=== PATIENT | female | born 1965 | race Caucasian/White ===

== ENCOUNTER 2016-10-09 16:44 | Emergency (ER) | payer OTHER ==
[2015-11-26 08:43] VITALS: BMI 34.1
[~2016-10-09 16:44] MED LIST: ASPIRIN EC81 M1 PO; ASPIRIN EC81 MG; ATIVAN0.5 MG PO; BAYER CHEWABLE81 MG PO; COZAAR25 MG PO; CRESTOR10 MG PO; CRESTOR20 MG PO; ESTRACE 0.5 MG0.5 MG PO; ESTRACE1 MG PO; GEMFIBROZIL600 MG PO; IMDUR30 MG PO; LIPITOR20 MG PO; MULTI-DAY VITAM1 TAB PO; NICODERM C1 PATCH .2 TRANSDERM; NITROSTAT0.4 MG SL; OMEGA-3100 MG PO; PLAVIX75 MG PO; PROZAC10 MG PO; RYBIX ODT50 MG; STRATTERA40 MG PO; SYNTHROID25 MCG PO; ULTRAM50 MG PO; ZIAC 10-6.25 MG1 TAB PO; ZIAC 10/6.25 MG1 TAB
== END 2016-10-09 18:58 | disposition home or self-care (01) ==
LOC: D.ER 16:44
DX: S16.1XXA Strain of muscle, fascia and tendon at neck level, initial encounter (principal); V43.52XA Car driver injured in collision with other type car in traffic accident, initial encounter; Y93.89 Activity, other specified; Y92.410 Unspecified street and highway as the place of occurrence of the external cause; F41.9 Anxiety disorder, unspecified; I10 Essential (primary) hypertension; I50.9 Heart failure, unspecified; F17.200 Nicotine dependence, unspecified, uncomplicated; E05.90 Thyrotoxicosis, unspecified without thyrotoxic crisis or storm

== ENCOUNTER 2017-03-02 18:41 | Emergency (ER) | payer BC ==
[2015-11-26 08:43] VITALS: BMI 34.1
[2017-03-02 19:16] LABS: BASOPHILS 0.4 % (0-2); EOSINOPHILS 1.6 % (0-7); HEMATOCRIT 42.2 % (36.0-48.0); HEMOGLOBIN 14.4 g/dL (12-16); IMMATURE GRANULOCYTES 0.5 % (0-5); LYMPHOCYTES 16.1 % (15-50); MCH 31.9 pg (26.0-34.0); MCHC 34.1 g/dL (31.0-37.0); MCV 93.4 fL (80.0-100.0); MEAN PLATELET VOLUME 11.3 fL (7.4-10.4); MONOCYTES 5.4 % (2-11); PLATELET COUNT 257 10x3/uL (130-400); RBC 4.52 10x6/uL (4.00-5.40); RDW 13.4 % (11.5-14.5); WBC 12.9 10x3/uL (4.8-10.8)
[2017-03-02 19:30] LABS: ALBUMIN 4.1 g/dL (3.4-5.0); ANION GAP 17.6 mmol/L (8-16); BILIRUBIN - TOTAL 0.26 mg/dL (0.2-1.3); CARBON DIOXIDE 24.9 mmol/L (21.0-32.0); POTASSIUM - SERUM 3.5 mmol/L (3.5-5.1); PROTEIN - SERUM 7.2 g/dL (6.4-8.2)
== END 2017-03-02 23:00 | disposition home or self-care (01) ==
LOC: D.ER 18:41
PROVIDERS: Emergency Medicine
DX: S80.12XA Contusion of left lower leg, initial encounter (principal); S90.32XA Contusion of left foot, initial encounter; S90.31XA Contusion of right foot, initial encounter; S40.012A Contusion of left shoulder, initial encounter; V43.52XA Car driver injured in collision with other type car in traffic accident, initial encounter; Y93.89 Activity, other specified; Y92.410 Unspecified street and highway as the place of occurrence of the external cause; S81.812A Laceration without foreign body, left lower leg, initial encounter; S16.1XXA Strain of muscle, fascia and tendon at neck level, initial encounter; F17.200 Nicotine dependence, unspecified, uncomplicated; I10 Essential (primary) hypertension

== ENCOUNTER 2017-03-12 12:03 | Emergency (ER) | payer OTHER ==
[2015-11-26 08:43] VITALS: BMI 34.1
[2017-03-12 15:29] LABS: BASOPHILS 0.3 % (0-2); HEMATOCRIT 36.4 % (36.0-48.0); HEMOGLOBIN 11.8 g/dL (12-16); IMMATURE GRANULOCYTES 0.4 % (0-5); LYMPHOCYTES 21.3 % (15-50); MCH 31.5 pg (26.0-34.0); MCHC 32.4 g/dL (31.0-37.0); MCV 97.1 fL (80.0-100.0); MEAN PLATELET VOLUME 10.3 fL (7.4-10.4); MONOCYTES 9.1 % (2-11); NEUTROPHILS 66.9 % (40-80); PLATELET COUNT 277 10x3/uL (130-400); RBC 3.75 10x6/uL (4.00-5.40); RDW 14.1 % (11.5-14.5); WBC 9.4 10x3/uL (4.8-10.8)
[2017-03-12 15:43] LABS: INR 1.03 (0.85-1.17); PROTIME 13.3 SECONDS (11.6-15.0)
[2017-03-12 15:48] LABS: ALBUMIN 3.6 g/dL (3.4-5.0); ALKALINE PHOSPHATASE 129 U/L (46-116); ALT (SGPT) 56 U/L (10-68); BILIRUBIN - TOTAL 0.51 mg/dL (0.2-1.3); CALC OSMOLALITY 280 mosm/kg (275-300); CALCIUM 8.9 mg/dL (8.5-10.1); CHLORIDE - SERUM 102 mmol/L (98-107); CREATININE - SERUM 0.8 mg/dL (0.6-1.3); GLUCOSE 91 mg/dL (74-106); POTASSIUM - SERUM 3.7 mmol/L (3.5-5.1); PROTEIN - SERUM 6.9 g/dL (6.4-8.2); SODIUM 141 mmol/L (136-145); UREA NITROGEN 12 mg/dL (7-18); eGFR NON AFRICAN AMERICAN 79 mL/min (90-120)
== END 2017-03-12 16:57 | disposition home or self-care (01) ==
LOC: D.ER 12:03
PROVIDERS: Nurse Practitioner Family
DX: M25.562 Pain in left knee (principal); R07.9 Chest pain, unspecified; M79.672 Pain in left foot; S81.812D Laceration without foreign body, left lower leg, subsequent encounter; X58.XXXD Exposure to other specified factors, subsequent encounter; Y92.89 Other specified places as the place of occurrence of the external cause; I50.9 Heart failure, unspecified; I10 Essential (primary) hypertension

== ENCOUNTER → 2017-05-18 11:20 | Outpatient (CLI) | payer OTHER ==
[2015-11-26 08:43] VITALS: BMI 34.1
== END | disposition home or self-care (01) ==
LOC: D.CT 11:20
DX: R10.2 Pelvic and perineal pain (principal)

== ENCOUNTER 2017-09-14 08:00 | Outpatient (CLI) | payer OTHER ==
[~2017-09-14] VITALS: Ht 157.5 cm; Wt 86.4 kg
--- NOTE | ~2017-09-14 | OP ---
PATIENT NAME: SCOTT VASQUEZ MEDICAL RECORD: [id number] :61 LOCATION:D.CAT ADMISSION DATE: SURGEON: JAMES ESPINOSA MD DATE OF OPERATION: 09/14/2017 PROCEDURES: 1. Left heart catheterization. 2. Selective coronary angiography. 3. Left ventriculogram. INDICATION: Angina, coronary artery disease, previous PTCA and stent. PROCEDURE IN DETAIL: After informed consent was obtained and after a detailed description of the risks, benefits as well as alternative therapies, the patient elected to proceed with angiogram and heart catheterization. The right femoral area was prepped and draped in normal sterile fashion. Right femoral artery was cannulated via modified Seldinger technique with placement of 6-Icelandic sheath. All catheters exchanged through this sheath. FINDINGS: The left ventriculogram was performed in standard 30-degree STONE view, reveals good cardiac wall motion throughout all segments. Overall ejection fraction estimated at 55% to 60%. SELECTIVE CORONARY ANGIOGRAPHY: 1. Left main showed no significant angiographic disease. 2. Left anterior descending has previously placed stents. These are widely patent with no significant restenosis. No disease elsewise throughout the LAD or its branches. 3. The left circumflex has previously placed stents. These are widely patent with no significant restenosis. No disease elsewise throughout the circumflex branches. 4. The right coronary has previously placed stents, which are widely patent with no significant restenosis. No disease elsewise throughout the RCA or its branches. OVERALL IMPRESSION: Wide patency of all the previously placed stents. No disease elsewise. Preserved LV function. Continue medical management of the coronary artery disease and cardiac risk factors. TRANSINT:[id number] Voice Confirmation ID: [id number] DOCUMENT ID: [id number] JAMES ESPINOSA MD at 1403 CC: [id number] DICTATION DATE: 09/14/17 1334 OBSTETRICS GYN: 09/14/17 1357 DEP CLI 09/14/[address] [address]
--- NOTE | ~2017-09-14 | HEMODYNAMI ---
PATIENT:SCOTT VASQUEZ MEDICAL RECORD: [id number] : 61 LOCATION:[facility] ADMISSION DATE: 09/14/17 Generatedon:09/14/201713:30 Patient name: SCOTT VASQUEZ Patient #: [id number] : 1965 Date of study: 09/14/2017 Page: Of Hemodynamic Procedure Report Patient Data Patient Demographics Procedure consent was obtained First Name: SCOTT Gender: Female Last Name: CHRISTINA : 1965 [facility] Initial: A Age: 52 year(s) Patient #: [id number] Race: SSN: [id number] Additional ID: [id number] Contact details Address: [address] [place] [address] State: [place] City: [place] Zip code: [address] Past Medical History History of disease Date Diagnosis Comments CAD Allergies Allergen Reaction Date Comments Reported Iodine 06/15/2015 DONNA inhibitors 06/15/2015 Other allergy 06/15/2015 meperidine, doxycycline Admission Admission Data Admission Date: 09/14/2017 Admission Time: 8:00 Procedure Procedure Types Cath Procedure Diagnostic Procedure [facility] w/Coronaries Sedation Charges Moderate Sedation up to 15 minutes Procedure Description Procedure Date Procedure Date: 09/14/2017 Procedure Start Time: 13:22 Procedure End Time: 13:29 Procedure Staff Name Function Larry Blackwell MD Performing Physician Elba Montoya RT Monitor Pallavi Latham RT Scrub Tunde Rose RN Nurse Procedure Data Cath Procedure Fluoroscopy Diagnostic fluoroscopy Total fluoroscopy Time: 1.1 time: 1.1 min min Diagnostic fluoroscopy Total fluoroscopy dose: 518 dose: 518 mGy mGy Contrast Material Contrast Material Type Amount (ml) Isovue 300 67 Entry Location Entry Primary Successful Side Size Upsize Upsize Entry Closure Succes sful Closure Location (Fr) 1 (Fr) 2 (Fr) Remarks Device Remarks Femoral Right 5 Fr Exoseal artery Estimated blood loss: 5 ml Diagnostic catheters Device Type Used For End Catheter Placement MULTIPACK Pigtail 5 Fr LV Angiography catheter MULTIPACK JL 4.0 5Fr Left Coronary catheter Angiography MULTIPACK 3DRC 5Fr Right Coronary catheter Angiography Procedure Complications No complications Procedure Medications Medication Administration Route Dosage Oxygen etCO2 Nasal cannula 2 l/min Heparin Flush Bag added to field 2 bags (1000units/500ml NS) 0.9% NaCl I.V. 100 ml/hr Fentanyl I.V. 50 mcg Versed I.V. 1 mg Fentanyl I.V. 50 mcg Versed I.V. 1 mg Fentanyl I.V. 50 mcg Versed I.V. 1 mg Fentanyl I.V. 50 mcg Versed I.V. 1 mg Fentanyl I.V. 50 mcg Hemodynamics Rest Heart Rate: 77 (bpm) Pressure Samples Time Site Value (mmHg) Purpose Heart Use Rate(bpm) 13:24 LV 136/8,33 Snapshot 84 Snapshots Pre Cath Intra NCS Post Cath Vital Signs Time Heart Resp SPO2 etCO2 NIBP (mmHg) Rhythm Pain Sedation Rate (ipm) (%) (mmHg) Status Level (bpm) 13:00:31 86 17 21.6 165/74(123) NSR 0 (11) 10(A) , No pain 13:05:06 81 16 94 30.5 159/67(121) NSR 0 (11) 10(A) , No pain 13:09:42 76 16 95 35 139/59(93) NSR 0 (11) 10(A) , No pain 13:14:10 76 16 93 23.1 136/59(94) NSR 0 (11) 10(A) , No pain 13:18:41 70 16 93 32.1 131/57(92) NSR 0 (11) 9(A) , No pain 13:23:13 70 17 95 34.3 117/54(83) NSR 0 (11) 9(A) , No pain 13:28:23 78 17 95 36.5 119/72(107) NSR 0 (11) 9(A) , No pain Medications Time Medication Route Dose Verified Delivered Reason Notes Effe ctiveness by by 13:02:22 Oxygen etCO2 2 Larry Griffiths Per Nasal l/min Rosalva Rose RN physician cannula 13:02:36 Heparin Flush added 2 Larry Griffiths used for Bag to bags Rosalva Rose cylinder grinder (1000units/500ml field NS) 13:02:47 0.9% NaCl I.V. 100 Larry Tunde Per ml/hr Rosalva Rose RN physician 13:05:44 Fentanyl I.V. 50 Larry Tunde for ashley Rose RN sedation 13:05:51 Versed I.V. 1 mg Larry Tunde for Rosalva Rose RN sedation 13:08:55 Fentanyl I.V. 50 Larry Tunde for ashley Rose RN sedation 13:09:02 Versed I.V. 1 mg Larry Tunde for Rosalva Rose RN sedation 13:12:08 Fentanyl I.V. 50 Larry Tunde for ashley Rose RN sedation 13:12:12 Versed I.V. 1 mg Larry Tunde for Rosalva Rose RN sedation 13:16:15 Fentanyl I.V. 50 Larry Tunde for ashley Rose RN sedation 13:16:18 Versed I.V. 1 mg Larry Tunde for Rosalva Rose RN sedation 13:24:44 Fentanyl I.V. 50 Larry Tunde for ashley Rose RN sedation Procedure Log Time Note 12:34:56 Elba Montoya RT(R) sent for patient. Start room use. 12:44:06 Informed consent obtained and on chart 12:44:30 Diagnostic Cath Status : Elective 12:44:57 Time tracking: Regular hours (M-F 7:00 - 5:00) 12:45:02 Plan of Care:Hemodynamics will remain stable., Cardiac rhythm will remain stable., Comfort level will be maintained., Respiratory function will remain adequate., Patient/ family verbilizes understanding of procedure., Procedure tolerated without complication., Recovers from procedure without complications.. 12:49:18 Patient received from Pre/Post Procedure Room to CCL 2 Alert and oriented. Tansferred to table in Supine position. 12:49:19 Warm blankets applied, and filiberto hugger turned on for patient comfort. 12:49:20 Correct patient and procedure confirmed by team. 12:49:20 ECG and BP/O2 sat monitors applied to patient. 12:59:06 Vital chart was started 12:59:07 Baseline sample Acquired. 12:59:10 Rhythm: sinus rhythm 12:59:12 Full Disclosure recording started 12:59:16 H&P Date Dictated: 09/14/2017 Within 30 days and on chart., H&P Addendum completed by physician on day of procedure. (MUST COMPLETE FOR ALL OUTPATIENTS). 12:59:18 Pre-procedure instructions explained to patient. 12:59:18 Pre-op teaching completed and patient verbalized understanding. 12:59:20 Family in waiting room. 12:59:21 Patient NPO since Midnight. 12:59:25 Is the patient allergic to Iodine/contrast media? No. 12:59:26 Was the patient premedicated? No 13:00:15 Is patient on blood thinner?No 13:00:16 Patient diabetic? No. 13:00:20 Previous problem with sedation/anesthesia? No ? 13:02:22 Oxygen 2 l/min etCO2 Nasal cannula was administered by Tunde Rose RN; Per physician; 13:02:36 Heparin Flush Bag (1000units/500ml NS) 2 bags added to field was administered by Tunde oRse RN; used for procedure; 13:02:47 0.9% NaCl 100 ml/hr I.V. was administered by Tunde Rose RN; Per physician; 13:03:17 Snore? Yes 13:03:18 Sleep apnea? No 13:03:19 Deviated septum? No 13:03:20 Opens mouth fully? Yes 13:03:20 Sticks out tongue? Yes 13:03:25 Airway obstruction? Yes asthma 13:03:27 Dentures? No ? 13:03:30 Pre procedure: right dorsailis pedis pulse 2+ Normal; easily identifiable; not easily obliterated 13:03:33 Pre procedure: left dorsailis pedis pulse 2+ Normal; easily identifiable; not easily obliterated 13:03:36 Patient pain scale 0/10 ?. 13:03:41 IV patent on arrival in left forearm with 0.9% NaCl at [facility]. 13:03:44 Lab results completed and on chart. 13:03:48 Right groin area was prepped with chlora-prep and draped in sterile fashion 13:03:49 Alarms reviewed by R. N. 13:03:50 Sharps counted by scrub and verified by R.N. 13:05:06 Physician arrived 13:05:06 --------ALL STOP TIME OUT------ 13:05:07 Final Timeout: patient, procedure, and site verified with staff and physician. All members of the team are in agreement. 13:05:11 Right groin site verified by team. 13:05:14 Physical assessment completed. ASA score P 2 - A patient with mild systemic disease as per Larry Blackwell MD. 13:05:18 Sedation plan: IV Moderate Sedation Medication:Versed, Fentanyl 13:05:44 Fentanyl 50 mcg I.V. was administered by Tunde Rose RN; for sedation; 13:05:48 Use device set Femoral Dx 13:05:49 ACIST Syringe (02385) opened to sterile field. 13:05:49 Bag Decanter (2002S) opened to sterile field. 13:05:50 Medline Cath Pack ([id number]) opened to sterile field. 13:05:50 DIAGNOSTIC WIRE .035 260cm J wire (728490) opened to sterile field. 13:05:51 Versed 1 mg I.V. was administered by Tunde Rose RN; for sedation; 13:05:52 ACIST Hand Control (74997) opened to sterile field. 13:05:52 ACIST Manifold (39040) opened to sterile field. 13:05:53 DIAGNOSTIC Multipack 5Fr catheter set ([id number]) opened to sterile field. 13:05:53 Tegaderm 4 x 4 (1626W) opened to sterile field. 13:05:55 SHEATH Prelude 5Fr 0.035 (IKA-0A-36-035) opened to sterile field. 13:08:55 Fentanyl 50 mcg I.V. was administered by Tunde Rose RN; for sedation; 13:09:02 Versed 1 mg I.V. was administered by Tunde Rose RN; for sedation; 13:12:08 Fentanyl 50 mcg I.V. was administered by Tunde Rose RN; for sedation; 13:12:12 Versed 1 mg I.V. was administered by Tunde Rose RN; for sedation; 13:14:36 Zero performed for pressure channel P1 13:16:15 Fentanyl 50 mcg I.V. was administered by Tunde Rose RN; for sedation; 13:16:18 Versed 1 mg I.V. was administered by Tunde Rose RN; for sedation; 13:20:28 Procedure started. 13:22:55 Local anesthetic to right femoral artery with Lidocaine 2% by Larry Blackwell MD.INITIAL ACCESS ONLY 13:23:04 A 5 Fr sheath was inserted into the Right Femoral artery 13:23:39 A MULTIPACK Pigtail 5 Fr catheter was advanced over the wire and used for LV Angiography. 13:24:10 LV hemodynamics recorded. 13:24:11 LV gram done using STONE 13:24:31 EF : 60 % 13:24:37 Catheter removed. 13:24:43 A MULTIPACK JL 4.0 5Fr catheter was advanced over the wire and used for Left Coronary Angiography. 13:24:44 Fentanyl 50 mcg I.V. was administered by Tunde Rose RN; for sedation; 13:25:04 LCA angiography performed. 13:25:07 Injector settings: Ml/sec: 3, Volume: 6, 13:26:02 Catheter removed. 13:26:07 A MULTIPACK 3DRC 5Fr catheter was advanced over the wire and used for Right Coronary Angiography. 13:26:38 RCA angiography performed. 13::41 Injector settings: Ml/sec: 3, Volume: 6, 13:27:12 Catheter removed. 13:27:14 EXOSEAL 5Fr (EX500) opened to sterile field. 13:27:24 Sheath removed intact; hemostasis achieved with Exoseal to the Right Femoral artery. 13:27:25 Procedure ended.(Physican Out) 13:28:09 Fluoroscopy time 01.10 minutes. 13:28:13 Fluoroscopy dose: 518 mGy 13:28:13 Flurop Dose total: 518 13:28:16 Contrast amount:Isovue 300 67ml. 13:28:18 Sharps counted by scrub and verified by R.N. 13:28:26 Post-op/insertion site Right Femoral artery dressed using a 4 x 4 and Tegaderm. 13:28:30 Post right femoral artery:stable 13:28:31 Post Procedure Pulses reassessed and unchanged 13:28:33 Post procedure rhythm: unchanged. 13:28:36 Estimated blood loss: 5 ml 13:28:37 Post procedure instruction explained to patient.Patient verbalizes understanding. 13:28:37 Patient needs reinforcement of post procedure teaching. 13:28:47 Procedure and supply charges have been captured, reviewed, submitted and are correct. 13:28:52 Procedure Complication : No complications 13:28:53 Vital chart was stopped 13:28:54 See physician's report for complete and final results. 13:29:00 Report given to Pre/Post Procedure Room. 13:29:03 Patient transfered to Pre/Post Procedure Room with Stretcher. 13:29:05 Procedure ended. 13:29:05 Full Disclosure recording stopped 13:29:11 End room use (Document Last) 13:30:08 Procedure type changed to Cath procedure, Diagnostic procedure, LHC, LHC w/Coronaries, Sedation Charges, Moderate Sedation up to 15 minutes Device Usage Item Name Manufacture Quantity Catalog Number Hospital Part Current M inimal Lot# / Charge Number Stock Stock Serial# Code ACIST Syringe Acist 1 11381 127088 614918 995568 2 0 (00629) [employer] Bag Decanter Microtek 1 2001S 361911 51925 044474 5 () Medical Inc. Medline Cath Cardinal 1 [id number] 006638 85763 484437 5 Pack Health ([id number]) DIAGNOSTIC WIRE St Kai 1 155598 953207 916244 832251 3 0 .035 260cm J wire (260591) ACIST Hand Acist 1 44875 065177 074885 406163 5 Control (72401) [employer] Inc ACIST Manifold Acist 1 06444 640197 856355 715673 5 (83454) [employer] Inc DIAGNOSTIC Cardinal 1 PG8158 470489 75885 044900 3 0 Multipack 5Fr Health catheter set (RE5150) Tegaderm 4 x 4 3M 1 1626W 472581 345423 569030 5 (1626W) SHEATH Prelude Merit 1 [id number]-4J-55-035 514161 473189 997451 5 5Fr 0.035 Medical (XCL-0M-84-035) MULTIPACK Cardinal 1 808171 5 Pigtail 5 Fr Health catheter MULTIPACK JL Cardinal 1 412334 5 4.0 5Fr Health catheter MULTIPACK 3DRC Cardinal 1 090239 5 5Fr catheter Health EXOSEAL 5Fr Cardinal 1 EX500 095838 073868 257376 1 0 (EX500) Health Signature Audit Williamson Stage Time Signature Unsigned Intra-Procedure 09/14/2017 Elba Montoya 1:30:35 PM RT(R) Signatures Monitor : Elba Montoya RT Signature : Date : Time : [address] [place] [address]
[2017-09-14] MEDS ORDERED: ULTRAM50 MG PO (08:30)
[2017-09-14] MEDS ORDERED: ROBAXIN500 MG (08:31)
[2017-09-14 08:35] VITALS: BP 141/56; Ht 157.5 cm; Wt 86.4 kg
[2017-09-14 08:52] LABS: BASOPHILS 0.1 % (0-2); EOSINOPHILS 0 % (0-7); HEMATOCRIT 42.5 % (36.0-48.0); HEMOGLOBIN 14.6 g/dL (12-16); IMMATURE GRANULOCYTES 0.3 % (0-5); LYMPHOCYTES 10.4 % (15-50); MCH 32.4 pg (26.0-34.0); MCHC 34.4 g/dL (31.0-37.0); MCV 94.2 fL (80.0-100.0); MEAN PLATELET VOLUME 10.9 fL (7.4-10.4); MONOCYTES 1.6 % (2-11); NEUTROPHILS 87.6 % (40-80); PLATELET COUNT 244 10x3/uL (130-400); RBC 4.51 10x6/uL (4.00-5.40); RDW 13.3 % (11.5-14.5); WBC 10.8 10x3/uL (4.8-10.8)
[2017-09-14 09:00] LABS: CALCIUM 9.1 mg/dL (8.5-10.1); CARBON DIOXIDE 24.3 mmol/L (21.0-32.0); CREATININE - SERUM 1.1 mg/dL (0.6-1.3); POTASSIUM - SERUM 4.3 mmol/L (3.5-5.1)
== END 2017-09-14 16:10 | disposition home or self-care (01) ==
LOC: D.CATH 08:00
PROVIDERS: Internal Medicine Interventional Cardiology
DX: I25.119 Atherosclerotic heart disease of native coronary artery with unspecified angina pectoris (principal); Z95.5 Presence of coronary angioplasty implant and graft; Z01.812 Encounter for preprocedural laboratory examination

== ENCOUNTER 2017-11-06 18:10 | Emergency (ER) | payer OTHER ==
[~2017-11-06] VITALS: Ht 157.5 cm; Wt 86.4 kg
[~2017-11-06 18:10] MED LIST changes: +ROBAXIN500 MG
[2017-11-06 18:30] VITALS: Ht 157.5 cm; Wt 86.4 kg
[2017-11-06] MEDS ORDERED: ZYLOPRIM300 MG PO (18:33)
[2017-11-06] MEDS ORDERED: BUTALB-APAP-CA1 EACH PO (18:33)
[2017-11-06] MEDS ORDERED: VENTOLIN HFA18 GM (18:33)
[2017-11-06] MEDS ORDERED: SKELAXIN800 MG PO (20:43)
[2017-11-06] MEDS ORDERED: IBUPROFEN800 MG PO (20:43)
[2017-11-06 21:24] VITALS: BP 154/81
== END 2017-11-06 21:24 | disposition home or self-care (01) ==
LOC: D.ER 18:10
DX: M54.41 Lumbago with sciatica, right side (principal); M79.1 Myalgia; I10 Essential (primary) hypertension; I25.10 Atherosclerotic heart disease of native coronary artery without angina pectoris; F17.200 Nicotine dependence, unspecified, uncomplicated

== ENCOUNTER → 2019-02-24 08:52 | Outpatient (CLI) | payer OTHER ==
[2017-11-06 18:30] VITALS: BMI 34.8
[~2019-02-24 08:52] MED LIST changes: +BUTALB-APAP-CA1 EACH PO; +IBUPROFEN800 MG PO; +SKELAXIN800 MG PO; +VENTOLIN HFA18 GM; +ZYLOPRIM300 MG PO
--- NOTE | 2019-02-26 10:41 | ST ---
PATIENT:SCOTT VASQUEZ MEDICAL RECORD: [id number] SEX: F LOCATION:[facility] ORDER #: ADMISSION DATE: 02/24/19 AGE OF PATIENT: 53 REFERRING PHYSICIAN: INTERPRETING PHYSICIAN: JAMES ESPINOSA MD DATE OF SERVICE: 02/24/2019 PROCEDURE: Nuclear stress test. INDICATIONS: Angina, coronary artery disease, abnormal ECG, shortness of breath, hypertension. She was exercised on standard Lexiscan protocol with 27 mCi of sestamibi injected at peak stress, 9 mCi used previously for rest images. FINDINGS: Gated SPECT reveals preserved ejection fraction at 65% with good wall motion and thickening and brightening throughout all segments. SPECT Imaging: Cardiolite was used as myocardial fusion agent. There is homogeneous uptake throughout all segments at rest and stress with no evidence of inducible ischemia or previous infarction. OVERALL IMPRESSION: 1. This is a normal nuclear stress test with no evidence of inducible ischemia or previous infarction. 2. Gated SPECT reveals a preserved ejection fraction at 65%. In this patient with ongoing symptomatology, the current scan does not suggest the presence of hemodynamically significant coronary artery disease. Evaluate noncardiac etiology of chest pain. TRANSINT:[id number] Voice Confirmation ID: [id number] DOCUMENT ID: [id number] JAMES ESPINOSA MD at 1041 CC: JUANY CHRISTIANSON [id number] DICTATION DATE: 02/25/19 0858 TAIL EDGER: 02/26/19 0448 DEP CLI 02/24/19 [place] [id number] [place] [address]
== END | disposition home or self-care (01) ==
LOC: D.HCCARDIO 08:52
PROVIDERS: ATTEND Internal Medicine Interventional Cardiology
DX: I25.119 Atherosclerotic heart disease of native coronary artery with unspecified angina pectoris (principal)

== ENCOUNTER 2019-08-28 05:40 | Day surgery (SDC) | payer OTHER ==
[2019-08-27 09:42] LABS: HEMATOCRIT 44.7 % (36.0-48.0); HEMOGLOBIN 14.8 g/dL (12-16); MCHC 33.1 g/dL (31.0-37.0); MCV 96.5 fL (80.0-100.0); MEAN PLATELET VOLUME 11.1 fL (7.4-10.4); RBC 4.63 10x6/uL (4.00-5.40); RDW 13.5 % (11.5-14.5); WBC 8.7 10x3/uL (4.8-10.8)
[~2019-08-28] VITALS: Ht 157.5 cm; Wt 91.2 kg
--- NOTE | ~2019-08-28 | OP ---
PATIENT NAME: SCOTT VASQUEZ MEDICAL RECORD: [id number] :61 LOCATION:[facility] ADMISSION DATE: SURGEON: MARCELO BENITO MD DATE OF OPERATION: 08/28/2019 PREOPERATIVE DIAGNOSES: Lumbar spinal stenosis and foraminal stenosis at L4-L5 and L5-S1 on the right. PROCEDURE: Lumbar laminotomy, medial facetectomy and foraminotomy at L4-L5 and L5-S1, right. SURGEON: Marcelo Benito MD DESCRIPTION AND TECHNIQUE: After induction of general endotracheal anesthesia, the patient was rolled prone on the Ranjan frame. Lumbar spine was prepped and draped in usual sterile fashion. Fluoroscopic x-ray and spinal needle localized at L4-L5 interspace on the right side. After infiltration of 1:100,000 epinephrine and 1% lidocaine, a series of dilators were used to advance a METRx retractor to the L4-L5 interspace on the right side. A fluoroscopic x-ray confirmed level. A microscope and a Midas Zach drill were used to perform a laminotomy, medial facetectomy and foraminotomy at L4-L5 and L5-S1 on the right. Hypertrophied ligamentum flavum was removed with Cloward rongeurs. Following this, the L4, L5 and S1 nerve roots were decompressed well. Meticulous hemostasis was maintained throughout the wound. Wound was irrigated with copious amounts of Ancef irrigant solution. The retractors removed. The fascia was closed with 2-0 Vicryl suture. Subdermal layer was closed with 3-0 Vicryl suture. Skin was closed with navin. A sterile dressing was applied to the wound. The patient was awakened in good condition and taken to recovery. All counts were reported as correct. Estimated blood loss was minimal. TRANSINT:[id number] Voice Confirmation ID: [id number] DOCUMENT ID: [id number] MARCELO BENITO MD CC: [id number] DICTATION DATE: 09/15/19 07 PHARMACY BILLING ADJUDICATOR: 09/15/19 1046 [facility] 08/28/19 [place] [id number]
[~2019-08-28 05:40] MED LIST changes: -VENTOLIN HFA18 GM; +VENTOLIN INH; +[UNRECOGNIZED DRUG - OTHER] INH
[2019-08-28 06:11] VITALS: BP 153/61; Ht 157.5 cm; Wt 91.2 kg
--- NOTE | 2019-08-28 09:35 | NUR ---
UPON FURTHER ASSESSMENT PATIENT DENIES NUMBNESS/TINGLING TO ANY EXTREMITY. REPORTS DECREASED PAIN IN THE RT LEG.
--- NOTE | 2019-08-28 10:50 | NUR ---
PIV DC'D WITH TIP INTACT, PATIENT AMBULATING WITHOUT DIZZINESS OR UNSTEADINESS, PATIENT DRESSING IN PERSONAL CLOTHING
--- NOTE | 2019-08-28 13:48 | NUR ---
1100-DISCHARGE CRITERIA MET. REVIEWED POST OPERATIVE INSTRUCTIONS AND FOLLOW UP APPOINTMENT. VERBALIZED UNDERSTANDING. ESCORTED OUT VIA W/C WITH SPOUSE AWAITING TO DRIVE HOME
== END 2019-08-28 11:00 | disposition home or self-care (01) ==
LOC: D.PAN 05:40 → D.OPS 07:30 → D.PAN 11:00
PROVIDERS: Anesthesiology; ATTEND Neurological Surgery
DX: M54.16 Radiculopathy, lumbar region (principal); M48.061 Spinal stenosis, lumbar region without neurogenic claudication; K21.9 Gastro-esophageal reflux disease without esophagitis; I10 Essential (primary) hypertension; E78.5 Hyperlipidemia, unspecified; E03.9 Hypothyroidism, unspecified

== ENCOUNTER 2019-08-30 12:08 | Inpatient (IN) | payer OTHER ==
[~2019-08-30] VITALS: Ht 157.5 cm; Wt 90.9 kg
[2019-08-30 13:07] LABS: BASOPHILS 0.7 % (0-2); EOSINOPHILS 1.6 % (0-7); HEMOGLOBIN 13.7 g/dL (12-16); IMMATURE GRANULOCYTES 0.4 % (0-5); LYMPHOCYTES 27.1 % (15-50); MCH 31.9 pg (26.0-34.0); MCHC 32.6 g/dL (31.0-37.0); MCV 97.7 fL (80.0-100.0); MEAN PLATELET VOLUME 11.1 fL (7.4-10.4); MONOCYTES 11.1 % (2-11); NEUTROPHILS 59.1 % (40-80); PLATELET COUNT 223 10x3/uL (130-400); RDW 13.6 % (11.5-14.5); WBC 8.9 10x3/uL (4.8-10.8)
[2019-08-30 13:24] LABS: ANION GAP 9.2 mmol/L (8-16); CALCIUM 9.1 mg/dL (8.5-10.1); CARBON DIOXIDE 30.8 mmol/L (21.0-32.0)
[2019-08-30 13:31] LABS: ALBUMIN 3.5 g/dL (3.4-5.0); BILIRUBIN - TOTAL 0.44 mg/dL (0.2-1.3); PROTEIN - SERUM 6.6 g/dL (6.4-8.2)
[2019-08-30 14:53] LABS: BILIRUBIN NEGATIVE (NEGATIVE); GLUCOSE NEGATIVE (NEGATIVE); KETONE NEGATIVE (NEGATIVE); NITRITE NEGATIVE (NEGATIVE); UROBILINOGEN NORMAL (NORMAL)
[2019-08-30 15:06] LABS: BACTERIA FEW /hpf (NEGATIVE); EPITHELIAL CELLS 0-5 /hpf (0-5); RED CELLS - URINE 0-5 /hpf (0-5); WHITE CELLS - URINE 0-5 /hpf (NEGATIVE); YEAST >1+ /hpf (NONE SEEN)
--- NOTE | 2019-08-30 15:38 | NUR ---
PT RATES PAIN 02/23
[2019-08-30 15:39] VITALS: BP 134/52
--- NOTE | 2019-08-30 17:00 | NUR ---
YOLANDA RECEIVED TO ROOM WITH SPOT BILLING CLERK MORPHINE SET UP PER ORDER. IV TO LEFT A/C INFUSING AT PRESCRIBED RATE WITH PAIN 8/10 AT THIS TIME.
[2019-08-30] MEDS ORDERED: HYDROCODON-ACE1 EA10 PO (17:08)
[2019-08-30 17:17] VITALS: BP 151/56; Ht 157.5 cm; Wt 90.9 kg
[2019-08-30 20:00] VITALS: BP 131/53
[2019-08-31] VITALS: BP 121/55
[2019-08-31 04:00] VITALS: BP 133/64
[2019-08-31 05:33] LABS: BASOPHILS 0.1 % (0-2); EOSINOPHILS 0 % (0-7); HEMATOCRIT 41.8 % (36.0-48.0); HEMOGLOBIN 13.5 g/dL (12-16); IMMATURE GRANULOCYTES 0.4 % (0-5); LYMPHOCYTES 8.2 % (15-50); MCH 31.2 pg (26.0-34.0); MCHC 32.3 g/dL (31.0-37.0); MCV 96.5 fL (80.0-100.0); MEAN PLATELET VOLUME 11.1 fL (7.4-10.4); MONOCYTES 2.9 % (2-11); NEUTROPHILS 88.4 % (40-80); PLATELET COUNT 227 10x3/uL (130-400); RBC 4.33 10x6/uL (4.00-5.40); RDW 13.3 % (11.5-14.5); WBC 10.5 10x3/uL (4.8-10.8)
[2019-08-31 05:54] LABS: ALBUMIN 3.5 g/dL (3.4-5.0); ANION GAP 12.1 mmol/L (8-16); BILIRUBIN - TOTAL 0.36 mg/dL (0.2-1.3); CALCIUM 8.8 mg/dL (8.5-10.1); CARBON DIOXIDE 29.4 mmol/L (21.0-32.0); POTASSIUM - SERUM 4.5 mmol/L (3.5-5.1); PROTEIN - SERUM 6.7 g/dL (6.4-8.2)
[2019-08-31 08:42] VITALS: BP 121/54
--- NOTE | 2019-08-31 09:00 | NUR ---
ALERT AND ORIENTED X4 WITH MOTOR VEHICLE EXAMINER ASSISTING FOR PAIN 6/10 FOR LOWER BACK PAIN. INCISION INTACT TO LOWER BACK WITHOUT ANY S/S OF INFECTION. STATES IS FEELING BETTER WITH AMBULATING. MOTOR VEHICLE EXAMINER MORPHINE AT PRESCRIBED SETTING.
[2019-08-31 12:35] VITALS: BP 143/66
[2019-08-31 16:08] VITALS: BP 143/63
[2019-08-31 21:59] VITALS: BP 129/64
[2019-09-01 00:39] VITALS: BP 121/54
[2019-09-01 06:07] LABS: BASOPHILS 0.1 % (0-2); EOSINOPHILS 0 % (0-7); HEMATOCRIT 41.7 % (36.0-48.0); HEMOGLOBIN 13.2 g/dL (12-16); IMMATURE GRANULOCYTES 0.6 % (0-5); MCH 31.4 pg (26.0-34.0); MCHC 31.7 g/dL (31.0-37.0); MEAN PLATELET VOLUME 11.3 fL (7.4-10.4); MONOCYTES 5.4 % (2-11); NEUTROPHILS 87.9 % (40-80); RBC 4.21 10x6/uL (4.00-5.40); RDW 13.5 % (11.5-14.5)
[2019-09-01 06:34] LABS: PLATELET COUNT 286 10x3/uL (130-400); WBC 15.7 10x3/uL (4.8-10.8)
[2019-09-01 06:40] LABS: ALBUMIN 3.4 g/dL (3.4-5.0); ANION GAP 11.4 mmol/L (8-16); BILIRUBIN - TOTAL 0.23 mg/dL (0.2-1.3); CALCIUM 9.3 mg/dL (8.5-10.1); CARBON DIOXIDE 31.2 mmol/L (21.0-32.0); POTASSIUM - SERUM 4.6 mmol/L (3.5-5.1); PROTEIN - SERUM 6.1 g/dL (6.4-8.2)
[2019-09-01 06:48] VITALS: BP 105/51
--- NOTE | 2019-09-01 07:50 | NUR ---
DENIES NEEDS.CALL LIGHT IN REACH
[2019-09-01 08:52] VITALS: BP 151/67
[2019-09-01] MEDS ORDERED: DECADRON4 MG PO (11:19)
[2019-09-01] MEDS ORDERED: MEDROL DOSE PACK4 MG PO (11:20)
[2019-09-01] MEDS ORDERED: PERCOCET 10-321 EAC1 PO (11:20)
--- NOTE | 2019-09-01 12:05 | MORECARE ---
CASE MANAGEMENT DISCHARGE SUMMARY PATIENT: SCOTT VASQUEZ UNIT: [id number] ADM DATE: 08/31/19 AGE: 54 : 61 SEX: F ROOM/BED: D.[facility] AUTHOR: ISACC KENDRICK PHYSICIAN: REFERRING PHYSICIAN: JUANY CHRISTIANSON MD DATE OF SERVICE: 09/01/19 Discharge Plan Patient Name: SCOTT VASQUEZ Facility: [facility]:[place] : 1965 Planned Disposition: Home Anticipated Discharge Date: 09/01/19 Discharge Date: Expected LOS: 1 Initial Reviewer: [email or web address] Initial Review Date: 09/01/2019 Generated: 09/01/19 1:05 pm DCPIA - Discharge Planning Initial Assessment Updated by [email or web address]: Maria Guadalupe Niño on 09/01/19 12:02 pm * Is the patient Alert and Oriented? Yes * PCP MEGHAN * Pharmacy [facility] [address] * Preadmission Environment Home with Family * ADLs Independent * Other Equipment WALKER * List name and contact numbers for known caregivers / representatives who currently or will assist patient after discharge: JAVIER HUTCHINSON, * Verbal permission to speak to the caregivers and representatives has been obtained from the patient. Yes * Community resources currently utilized None * Additional services required to return to the preadmission environment? No * Can the patient safely return to the preadmission environment? Yes * Has this patient been hospitalized within the prior 30 days at any hospital? Yes Patient Name: SCOTT VASQUEZ Page [id number] at 1205 All edits/amendments must be made on the electronic document DICTATION DATE: 09/01/19 1205 PULPER TENDER: GINNY 09/01/19 1205 RPT#: [id number] DC DATE: STATUS: ADM IN [facility] [address] [place] [address] END OF REPORT
--- NOTE | 2019-09-01 12:12 | MORECARE ---
CASE MANAGEMENT DISCHARGE SUMMARY PATIENT: SCOTT VASQUEZ UNIT: [id number] ADM DATE: 08/31/19 AGE: 54 : 61 SEX: F ROOM/BED: D.2237 AUTHOR: AROLDO,DOC PHYSICIAN: REFERRING PHYSICIAN: JUANY CHRISTIANSON MD DATE OF SERVICE: 09/01/19 Discharge Plan Patient Name: SCOTT VASQUEZ Facility: [facility]:[place] : 1965 Planned Disposition: Home Anticipated Discharge Date: 09/01/19 Discharge Date: Expected LOS: 1 Initial Reviewer: [email or web address] Initial Review Date: 09/01/2019 Generated: 09/01/19 1:12 pm Comments DCP- Discharge Planning Updated by [email or web address]: Maria Guadalupe Niño on 09/01/19 11:[address] Patient Name: SCOTT VASQUEZ Admission Status: ER Accout number: [id number] Admission Date: 08-31-2019 : 1965 Admission Diagnosis: Attending: JUANY CHRISTIANSON Current LOS: 1 Anticipated DC Date: 09-01-2019 Planned Disposition: Home Primary Insurance: [employer] INS EXCHANGE Discharge Planning Comments: CM met with patient at bedside after explaining CM role and obtaining verbal consent. CM discussed availability / needs of home health, REHAB and medical equipment. SHE IS NOT SURE IF SHE IS SUPPOSED TO HAVE PT BEFORE SHE SEES DR. ORTEZ. IF SHE DOES NEED THERAPY I CAN HELP HER GET SET UP. CM TO FOLLOW AND ASSIST NEEDED. Environmental Conservation Officer: Maria Guadalupe Niño DCPIA - Discharge Planning Initial Assessment Updated by [email or web address]: Maria Guadalupe Niño on 09/01/19 12:02 pm * Is the patient Alert and Oriented? Yes * PCP MEGHAN * Pharmacy [facility] [address] * Preadmission Environment Home with Family * ADLs Independent * Other Equipment WALKER * List name and contact numbers for known caregivers / representatives who currently or will assist patient after discharge: EVANGELINA, JAVIER, * Verbal permission to speak to the caregivers and representatives has been obtained from the patient. Yes * Community resources currently utilized None * Additional services required to return to the preadmission environment? No * Can the patient safely return to the preadmission environment? Yes * Has this patient been hospitalized within the prior 30 days at any hospital? Yes Last DP export: 09/01/19 11:05 a Patient Name: SCOTT VASQUEZ Page 19414 at 1212 All edits/amendments must be made on the electronic document DICTATION DATE: 09/01/19 121 INSPECTOR FINAL ASSEMBLY CONVEYOR LINE: GINNY 09/01/19 1212 RPT#: [id number] DC DATE: STATUS: ADM IN [facility] [address] [place] [address] END OF REPORT
[2019-09-01 12:29] VITALS: BP 131/66
--- NOTE | 2019-09-01 13:56 | NUR ---
DC HOME AT THIS TIME. IV DC. VOICES UNDERSTANDING OF DC ORDERS. TOOK ALL PERSONAL BELONGS WITH HER. STABLE UPON DEPARTURE.
--- NOTE | 2019-09-02 08:31 | MORECARE ---
CASE MANAGEMENT DISCHARGE SUMMARY PATIENT: SCOTT VASQUEZ UNIT: [id number] ADM DATE: 08/31/19 AGE: 54 : 61 SEX: F ROOM/BED: D.2237 AUTHOR: AROLDO,DOC PHYSICIAN: REFERRING PHYSICIAN: JUANY CHRISTIANSON MD DATE OF SERVICE: 09/02/19 Discharge Plan Patient Name: SCOTT VASQUEZ Facility: [facility]:[place] : 1965 Planned Disposition: Home Anticipated Discharge Date: 09/01/19 Discharge Date: 09/01/2019 Expected LOS: 1 Initial Reviewer: [email or web address] Initial Review Date: 09/01/2019 Generated: 09/02/19 9:30 am Comments DCP- Discharge Planning Updated by [email or web address]: Maria Guadalupe Niño on 09/01/19 11:[address] Patient Name: SCOTT VASQUEZ Admission Status: ER Accout number: [id number] Admission Date: 08-31-2019 : 1965 Admission Diagnosis: Attending: JUANY CHRISTIANSON Current LOS: 1 Anticipated DC Date: 09-01-2019 Planned Disposition: Home Primary Insurance: [employer] EXCHANGE Discharge Planning Comments: CM met with patient at bedside after explaining CM role and obtaining verbal consent. CM discussed availability / needs of home health, REHAB and medical equipment. SHE IS NOT SURE IF SHE IS SUPPOSED TO HAVE PT BEFORE SHE SEES DR. ORTEZ. IF SHE DOES NEED THERAPY I CAN HELP HER GET SET UP. CM TO FOLLOW AND ASSIST NEEDED. Director Embalmer: Maria Guadalupe Niño DCPIA - Discharge Planning Initial Assessment Updated by [email or web address]: Maria Guadalupe Niño on 09/01/19 12:02 pm * Is the patient Alert and Oriented? Yes * PCP [facility] * [facility] [address] * Preadmission Environment Home with Family * ADLs Independent * Other Equipment WALKER * List name and contact numbers for known caregivers / representatives who currently or will assist patient after discharge: JAVIER HUTCHINSON, * Verbal permission to speak to the caregivers and representatives has been obtained from the patient. Yes * Community resources currently utilized None * Additional services required to return to the preadmission environment? No * Can the patient safely return to the preadmission environment? Yes * Has this patient been hospitalized within the prior 30 days at any hospital? Yes Last DP export: 09/01/19 11:12 a Patient Name: SCOTT VASQUEZ Page [id number] at 0831 All edits/amendments must be made on the electronic document DICTATION DATE: 09/02/19830 ELECTRICAL PROSPECTING SUPERVISOR: GINNY 09/02/19830 RPT#: [id number] DC DATE:09/01/19 STATUS: DIS IN [facility] [address] [place] [address] END OF REPORT
== END 2019-09-01 14:04 | disposition home or self-care (01) | DRG 948 ==
LOC: D.ER 12:08 → D.MS 14:57 → OBSVTIME 14:57 → D.MS 08-31 15:10
PROVIDERS: Family Medicine; ADMIT Family Medicine; ATTEND Family Medicine
DX: G89.18 Other acute postprocedural pain (principal); I10 Essential (primary) hypertension; E78.5 Hyperlipidemia, unspecified; I25.10 Atherosclerotic heart disease of native coronary artery without angina pectoris; K21.9 Gastro-esophageal reflux disease without esophagitis; E03.9 Hypothyroidism, unspecified; M19.90 Unspecified osteoarthritis, unspecified site; F41.8 Other specified anxiety disorders; J42 Unspecified chronic bronchitis; Z85.41 Personal history of malignant neoplasm of cervix uteri; Z85.43 Personal history of malignant neoplasm of ovary